=== PATIENT | female | born 1930 | race Caucasian/White ===

== ENCOUNTER 2018-04-05 09:51 | Inpatient (IN) | payer MEDICARE ==
[2018-04-05] MEDS ORDERED: IPRATROPIUM-ALBUTEROL 3 ML NEB INHALATION STA ×2 (10:55→13:58)
[2018-04-05] MEDS ORDERED: SODIUM CHLORIDE 0.9% 500 ML 500 ML IV STA (10:55)
[2018-04-05] MEDS ORDERED: ONDANSETRON 4 MG/2 ML VIAL IVP STA (10:56)
[2018-04-05] MEDS ORDERED: KETOROLAC 60 MG/2 ML VIAL IVP STA (11:00)
--- NOTE | 2018-04-05 11:00 | ED ---
General Adult HPI - General Chief complaint: Shortness of Breath Stated complaint: SOB Time Seen by Provider: 04/05/18 10:00 Source: patient, RN notes reviewed Mode of arrival: wheelchair Limitations: no limitations - History of Present Illness Initial comments: This is an 87-year-old female presents emergency department with past medical history significant for pulmonary fibrosis. Patient states his been getting worse over the last few days. She has a little worse and the day before per patient states she was has a cough and has not worsened normal and she is bringing up some sputum which is a little unusual. Patient denies any fever chills. Patient denied chest pain or palpitations. Patient states she has a little queasy stomach but has not vomited. Patient states she has not been able eat much because she doesn't feel well. Patient also states her sciatica is acting up lately as well. Patient denies any recent injury or trauma. Patient denies a headache patient denies any numbness or focal weakness. Patient denies any abdominal pain. - Related Data Home Medications Medication Instructions Recorded Confirmed Aspirin [[place] Aspirin EC] 81 day PO DAILY 04/05/18 04/05/18 Calcium Carbonate/Vitamin D3 1 tab PO DAILY 04/05/18 04/05/18 [Calcium 600-Vit D3 400 Caplet] Cetirizine HCl [Zyrtec] 10 mg PO DAILY 04/05/18 04/05/18 Fluticasone Nasal [place] [Flonase 1 spray EA NOSTRIL DAILY 04/05/18 04/05/18 Nasal [place]] Vit C/E/Zn/Coppr/Lutein/Zeaxan 1 tab PO BID 04/05/18 04/05/18 [Preservision Areds 2 Softgel] Vitamin B Complex 1 cap PO DAILY 04/05/18 04/05/18 traMADol HCl [Ultram] 50 mg PO Q6HR 04/05/18 04/05/18 Allergies Allergy/AdvReac Type Severity Reaction Status Date / Time acetaminophen [From Vicodin] Allergy Nausea & Verified 04/05/18 12:28 Vomiting hydrocodone [From Vicodin] Allergy Nausea & Verified 04/05/18 12:28 Vomiting Review of Systems ROS Statement: Those systems with pertinent positive or pertinent negative responses have been documented in the HPI. ROS Other: All systems not noted in ROS Statement are negative. Past Medical History Past Medical History: COPD History of Any Multi-Drug Resistant Organisms: None Reported Past Surgical History: Hysterectomy Past Psychological History: No Psychological Hx Reported Smoking Status: Never smoker Past Alcohol Use History: None Reported Past Drug Use History: None Reported General Exam - General Exam Comments Initial Comments: GENERAL: Patient is well-developed and well-nourished. Patient is nontoxic and well- hydrated and is in mild distress. ENT: Neck is soft and supple. No significant lymphadenopathy is noted. Oropharynx is clear. Moist mucous membranes. Neck has full range of motion without eliciting any pain. EYES: The sclera were anicteric and conjunctiva were pink and moist. Extraocular movements were intact and pupils were equal round and reactive to light. Eyelids were unremarkable. PULMONARY: Patient has crackles bilaterally CARDIOVASCULAR: There is a regular rate and rhythm without any murmurs gallops or rubs. ABDOMEN: Soft and nontender with normal bowel sounds. No palpable organomegaly was noted. There is no palpable pulsatile mass. SKIN: Skin is clear with no lesions or rashes and otherwise unremarkable. NEUROLOGIC: Patient is alert and oriented x3. Cranial nerves II through XII are grossly intact. Motor and sensory are also intact. Normal speech, volume and content. Symmetrical smile. MUSCULOSKELETAL: Normal extremities with adequate strength and full range of motion. No lower extremity swelling or edema. No calf tenderness. LYMPHATICS: No significant lymphadenopathy is noted PSYCHIATRIC: Normal psychiatric evaluation. Limitations: no limitations Course Vital Signs 04/05/18 04/05/18 04/05/18 09:57 10:47 11:08 Temperature 98.1 F Pulse Rate 115 H 104 H 104 H Respiratory 22 18 Rate Blood Pressure 165/71 131/62 O2 Sat by Pulse 84 L 97 Oximetry 04/05/18 11:18 Temperature Pulse Rate 109 H Respiratory Rate Blood Pressure O2 Sat by Pulse Oximetry Medical Decision Making - Medical Decision Making EKG shows sinus tachycardia at 109 bpm MT interval is 138 QRSs 82 QT interval 356 QTC is 479 per patient's EKG shows no ST segment elevation. Computed tomography scan shows no pulmonary embolism only worsening pulmonary fibrosis with some increased lymphadenopathy in the mediastinum. Patient was oxygen between 90-92% on oxygen. Patient received steroids and breathing treatment emergency department she felt as though the breathing treatment help but she still felt short of breath that she moved at all. I spoke with Dr. Campos and he agreed to admit the patient admitted the patient I consult pulmonology. I continue steroids and breathing treatments on the floor. In oxygen is removed patient Below 88% on Room Air. Patient Does Not Wear Any Oxygen at Home. - Lab Data Result diagrams: 04/05/18 10:14 04/05/18 10:14 Lab Results 04/05/18 04/05/18 04/05/18 Range/Units 10:14 10:14 10:14 WBC 9.8 (3.8-10.6) k/uL RBC 5.08 (3.80-5.40) m/uL Hgb 14.7 (11.4-16.0) gm/dL Hct 45.2 (34.0-46.0) % MCV 89.0 (80.0-100.0) fL MCH 28.9 (25.0-35.0) pg MCHC 32.4 (31.0-37.0) g/dL RDW 14.8 (11.5-15.5) % Plt Count 360 (150-450) k/uL Neutrophils % 78 % Lymphocytes % 9 % Monocytes % 7 % Eosinophils % 4 % Basophils % 0 % Neutrophils # 7.6 (1.3-7.7) k/uL Lymphocytes # 0.9 L (1.0-4.8) k/uL Monocytes # 0.7 (0-1.0) k/uL Eosinophils # 0.4 (0-0.7) k/uL Basophils # 0.0 (0-0.2) k/uL PT 10.9 (9.0-12.0) sec INR 1.0 (<1.2) APTT 24.1 (22.0-30.0) sec D-Dimer 2.10 H (<0.60) mg/L FEU Sodium 137 (137-145) mmol/L Potassium 4.4 (3.5-5.1) mmol/L Chloride 100 (98-107) mmol/L Carbon Dioxide 28 (22-30) mmol/L Anion Gap 9 mmol/L BUN 15 (7-17) mg/dL Creatinine 0.97 (0.52-1.04) mg/dL Est GFR (CKD-EPI)AfAm 61 (>60 ml/min/1.73 sqM) Est GFR (CKD-EPI)NonAf 53 (>60 ml/min/1.73 sqM) Glucose 105 H (74-99) mg/dL Calcium 9.7 (8.4-10.2) mg/dL Magnesium 2.1 (1.6-2.3) mg/dL Total Bilirubin 0.9 (0.2-1.3) mg/dL AST 42 H (14-36) U/L ALT 26 (9-52) U/L Alkaline Phosphatase 114 (38-126) U/L Troponin I (0.000-0.034) ng/mL NT-Pro-B Natriuret Pep pg/mL Total Protein 7.3 (6.3-8.2) g/dL Albumin 3.7 (3.5-5.0) g/dL 04/05/18 04/05/18 Range/Units 10:14 10:14 WBC (3.8-10.6) k/uL RBC (3.80-5.40) m/uL Hgb (11.4-16.0) gm/dL Hct (34.0-46.0) % MCV (80.0-100.0) fL MCH (25.0-35.0) pg MCHC (31.0-37.0) g/dL RDW (11.5-15.5) % Plt Count (150-450) k/uL Neutrophils % % Lymphocytes % % Monocytes % % Eosinophils % % Basophils % % Neutrophils # (1.3-7.7) k/uL Lymphocytes # (1.0-4.8) k/uL Monocytes # (0-1.0) k/uL Eosinophils # (0-0.7) k/uL Basophils # (0-0.2) k/uL PT (9.0-12.0) sec INR (<1.2) APTT (22.0-30.0) sec D-Dimer (<0.60) mg/L FEU Sodium (137-145) mmol/L Potassium (3.5-5.1) mmol/L Chloride (98-107) mmol/L Carbon Dioxide (22-30) mmol/L Anion Gap mmol/L BUN (7-17) mg/dL Creatinine (0.52-1.04) mg/dL Est GFR (CKD-EPI)AfAm (>60 ml/min/1.73 sqM) Est GFR (CKD-EPI)NonAf (>60 ml/min/1.73 sqM) Glucose (74-99) mg/dL Calcium (8.4-10.2) mg/dL Magnesium (1.6-2.3) mg/dL Total Bilirubin (0.2-1.3) mg/dL AST (14-36) U/L ALT (9-52) U/L Alkaline Phosphatase (38-126) U/L Troponin I <0.012 (0.000-0.034) ng/mL NT-Pro-B Natriuret Pep 2480 pg/mL Total Protein (6.3-8.2) g/dL Albumin (3.5-5.0) g/dL Critical Care Time Critical Care Time: Yes Total Critical Care Time: 35 Disposition Clinical Impression: Dyspnea, Pulmonary fibrosis, Hypoxia Disposition: ADMITTED IP TO THIS HOSP Referrals: Ran Mota MD [Primary Care Provider] - 1-2 days Time of Disposition: 13:34
[2018-04-05 11:06] LABS: Basophils % (A) 0 %; Eosinophils # (A) 0.4 k/uL (0-0.7); Eosinophils % (A) 4 %; HCT 45.2 % (34.0-46.0); HGB 14.7 gm/dL (11.4-16.0); Lymphocytes # (A) 0.9 k/uL (1.0-4.8); Lymphocytes % (A) 9 %; MCH 28.9 pg (25.0-35.0); MCHC 32.4 g/dL (31.0-37.0); Mean Platelet Volume 6.7; Monocytes # (A) 0.7 k/uL (0-1.0); Monocytes % (A) 7 %; Neutrophils # (A) 7.6 k/uL (1.3-7.7); Neutrophils % (A) 78 %; Platelet Count 360 k/uL (150-450); RBC 5.08 m/uL (3.80-5.40); RDW 14.8 % (11.5-15.5); WBC 9.8 k/uL (3.8-10.6)
[2018-04-05 11:19] LABS: Albumin 3.7 g/dL (3.5-5.0); Calcium 9.7 mg/dL (8.4-10.2); Magnesium 2.1 mg/dL (1.6-2.3); Potassium 4.4 mmol/L (3.5-5.1); Total Bilirubin 0.9 mg/dL (0.2-1.3); Total Protein 7.3 g/dL (6.3-8.2)
[2018-04-05 11:22] LABS: Partial Thromboplastin Time 24.1 sec (22.0-30.0); Prothrombin Time 10.9 sec (9.0-12.0)
[2018-04-05 11:43] LABS: D-Dimer 2.1 mg/L FEU (<0.60)
--- NOTE | 2018-04-05 11:46 | XR ---
EXAMINATION TYPE: XR chest 2V DATE OF EXAM: 04/05/2018 COMPARISON: 06/15/2012, CT chest 06/15/2012 INDICATION: Difficulty breathing, COPD TECHNIQUE: Frontal and lateral views of the chest are obtained. FINDINGS: The heart size is borderline in size. The pulmonary vasculature is normal. There is diffuse increased lung markings. Portion of this is chronic and could represent some pulmona ry fibrosis.. Prior right shoulder repair IMPRESSION: 1. Findings suggestive for pulmonary fibrosis.
[2018-04-05] MEDS ORDERED: methylPREDNISolone SOD SUCCI 125 MG/2 ML VIAL IV STA (12:32)
--- NOTE | 2018-04-05 13:12 | CT ---
CT CHEST FOR PULMONARY EMBOLISM. EXAMINATION TYPE: CT chest angio for PE DATE OF EXAM: 04/05/2018 INDICATION: SOB and Pain CT DLP: 425.9 mGycm, Automated exposure control for dose reduction was used. CONTRAST: Patient injected with 100 ml mL of Isovue 370. COMPARISON: 06/15/2012 TECHNIQUE: CT of the chest is performed on a spiral scan at 2 mm thick sections. Study is performed with intravenous contrast timed for evaluation for pulmonary embolism. This will limit additional po rtions of the evaluation. 3-D MIP images reconstructed by the technologist are reviewed on the compu ter in the coronal and sagittal planes. FINDINGS: No persistent filling defects are evident to suggest an acute pulmonary embolism. There appears to be some enlarged pretracheal lymphadenopathy, the largest measures 1.3 cm in the pre tracheal space. Smaller superior mediastinal adenopathy is present. Suspicious axillary adenopathy is not evident. There may be enlarged subcarinal lymph node measuring 1.2 cm. The ascending aorta diameter at the level of the main pulmonary artery is 3.4 cm. The main pulmonary artery diameter at the bifurcation is 3.2 cm. Changes compatible pulmonary fibrosis are at the periphery and lung bases. This is progressive from [address] section through the upper abdomen are unremarkable. IMPRESSIONS: 1. No acute pulmonary embolism. 2. Pulmonary fibrosis, worsening from 2013. 3. Enlarged mediastinal adenopathy which is increased from comparison.
[2018-04-05] MEDS ORDERED: IPRATROPIUM-ALBUTEROL 3 ML NEB INHALATION PRN (13:34)
[2018-04-05 16:49] LABS: Glucose,Whole Blood 204 mg/dL (75-99)
[2018-04-05] MEDS: methylPREDNISolone SOD SUCCI 125 MG/2 ML VIAL IV SCH ×2 (17:07→23:12)
[2018-04-05] MEDS ORDERED: traMADol 50 MG TAB PO PRN (20:00)
[2018-04-05 21:39] LABS: Glucose,Whole Blood 141 mg/dL (75-99)
[2018-04-05] MEDS: INSULIN ASPART (NovoLOG) 100 UNIT/ML VIAL SQ SCH (21:49)
[2018-04-05] MEDS: VIT A,C & E-LUTEIN-MINERALS 1 EACH TAB PO SCH (21:50)
[2018-04-05 23:34] LABS: Appearance,Urine Clear (Clear); Bacteria,Urine Rare /hpf; Bilirubin,Urine Negative (Negative); Blood,Urine Negative (Negative); Color,Urine Yellow; Glucose,Urine (UA) Negative (Negative); Ketones,Urine Negative (Negative); Leukocyte Esterase,Urine Moderate (Negative); Nitrite,Urine Negative (Negative); Protein,Urine Trace (Negative); RBC,Urine 4 /hpf (0-5); Specific Gravity,Urine 1.042 (1.001-1.035); Squamous Epithelial Cell,Urine <1 /hpf (0-4); Urobilinogen,Urine <2.0 mg/dL (<2.0); WBC,Urine 20 /hpf (0-5)
[2018-04-06] MEDS ORDERED: ALPRAZolam 0.25 MG TAB PO PRN (00:14)
[2018-04-06 06:04] LABS: Glucose,Whole Blood 127 mg/dL (75-99)
[2018-04-06] MEDS: INSULIN ASPART (NovoLOG) 100 UNIT/ML VIAL SQ SCH ×4 (06:08→21:06)
[2018-04-06] MEDS: methylPREDNISolone SOD SUCCI 125 MG/2 ML VIAL IV SCH ×4 (06:19→22:23)
[2018-04-06] MEDS: PANTOPRAZOLE 40 MG TABLET PO SCH (06:19)
[2018-04-06] MEDS: IPRATROPIUM-ALBUTEROL 3 ML NEB INHALATION SCH ×3 (08:14→19:05)
[2018-04-06] MEDS: HEPARIN SODIUM,PORCINE 5,000 UNIT/ML 1 ML VIAL SQ SCH ×2 (08:16→21:06)
[2018-04-06] MEDS: CALCIUM CARB-VIT D 500MG-200UN 1 EACH TAB PO SCH (08:16)
[2018-04-06] MEDS: ASPIRIN 81 MG PO SCH (08:16)
[2018-04-06] MEDS: VIT A,C & E-LUTEIN-MINERALS 1 EACH TAB PO SCH ×2 (08:16→21:06)
[2018-04-06] MEDS: LORATADINE 10 MG TAB PO SCH (08:16)
--- NOTE | 2018-04-06 08:48 | HP ---
HISTORY AND PHYSICAL DATE OF SERVICE: 04/06/2018 CHIEF COMPLAINT: Shortness of breath. HISTORY: This is an 87-year-old woman with a past medical history of COPD, pulmonary fibrosis, bladder surgery being followed by Dr. Ran Mota in the outpatient setting complaining of the increased shortness of breath. The patient also had pulmonary fibrosis. The patient has seen Dr. [place] and Dr. Vu before. The patient also bringing out some sputum and the cough is worse and the patient came to [facility] and was admitted for further evaluation. D-dimer was elevated and CT angio of the chest showed no evidence of pulmonary embolism, but increased pulmonary fibrosis and mediastinal adenopathy was noted. Patient admitted for further evaluation. There is no history of fever or rigors. No history of headache, loss of consciousness or seizures. PAST MEDICAL HISTORY: COPD, pulmonary fibrosis, bladder surgery, hysterectomy. MEDICATIONS: Medications prior to admission: 1. Ultram 50 mg q.6 p.r.n. 2. Vitamin B complex 1 p.o. daily. 3. PreserVision 1 tablet p.o. b.i.d. 4. Flonase 1 spray daily. 5. Zyrtec 10 mg p.o. daily. 6. Calcium with vitamin D one p.o. daily. 7. Aspirin 81 mg daily. ALLERGIES: Allergies are VICODIN. FAMILY HISTORY: No history of heart disease or strokes in the family. SOCIAL HISTORY: No history of smoking. No history of alcohol intake. REVIEW OF SYSTEMS: ENT: No diminished hearing or diminished vision. CARDIOVASCULAR SYSTEM: No angina. RESPIRATORY SYSTEM: As mentioned earlier. GI: No nausea. : No dysuria. NERVOUS SYSTEM: No numbness or weakness. ALLERGY/IMMUNOLOGY: No asthma or hayfever. MUSCULOSKELETAL: As mentioned earlier. HEMATOLOGY/ONCOLOGY: No history of anemia. ENDOCRINE: No history of diabetes or hypothyroidism. CONSTITUTIONAL: As mentioned earlier. DERMATOLOGY: Negative. RHEUMATOLOGY: Negative. PSYCHIATRY: As mentioned earlier. PHYSICAL EXAMINATION: Patient is alert, oriented x3. Pulse is 86. Blood pressure 105/50, respiration 16, temperature 97.5, pulse ox 96% on 2 L. HEENT: Conjunctivae normal. Oral mucosa moist. Neck is no jugular venous distention. No carotid bruit. No lymph node enlargement. CARDIOVASCULAR: S1, S2 muffled. No S3, no S4. RESPIRATORY: Breath sounds diminished at the bases. A few scattered rhonchi and crackles. ABDOMEN: Soft, nontender. LEGS: No edema. No swelling. NERVOUS SYSTEM: Higher functions as mentioned earlier. Moves all 4 limbs. No focal motor deficits. LYMPHATICS: No lymphadenopathy of the neck, axillae or groin. SKIN: No ulcer, rash or bleeding. JOINTS: No active deforming arthropathy. LABS: WBC 9.8, hemoglobin is 14. 7. D-dimer is noted. Glucose 105. UA noted. ASSESSMENT: 1. Chronic obstructive pulmonary disease acute exacerbation with acute purulent tracheobronchitis. 2. Pulmonary fibrosis, acute exacerbation. 3. Mediastinal adenopathy. 4. Elevated D-dimer with no evidence of pulmonary embolism. 5. History of bladder surgery. 6. History of hysterectomy. RECOMMENDATION AND DISCUSSION: In this 87-year-old woman who presented with multiple complex medical issues, we will monitor the patient closely. Continue the current medications, continue symptomatic treatment. Bronchodilators, empiric antibiotics, steroids. Consult Dr. [place]. Resume the home medications. Guarded prognosis because of multiple complex medical issues. Further recommendations to follow. A copy of dictation forwarded to Dr. Ran Mota, who is the primary physician. MMODL / IJN: [id number] /
[2018-04-06] MEDS ORDERED: NON-FORMULARY DRUG (Vitamin B Complex [Vitamin B Complex] 1 CAP) PO SCH (09:00)
[2018-04-06] MEDS: FLUTICASONE 50MCG/SPRAY NASAL 16GM EA NOSTRIL SCH (09:08)
[2018-04-06 11:19] VITALS: BMI 29.5
[2018-04-06 11:52] LABS: Glucose,Whole Blood 131 mg/dL (75-99)
[2018-04-06] MEDS: AZITHROMYCIN 250 MG TAB PO SCH (14:47)
--- NOTE | 2018-04-06 16:07 | P.CNPUL ---
History of Present Illness Consult date: 04/06/18 Reason for consult: dyspnea, pulmonary fibrosis History of present illness: 7-year-old here patient with previous history of pulmonary fibrosis coming in today because of worsening shortness of breath cough chest congestion and some limited amount of sputum production. He is an elderly female patient. Her last evaluation was in our office many years back. Since then she hasn't been seeing a oxidation operator patient on no oxygen. She denies having any pleurisy or hemoptysis. No altered mentation. At a time of admission him a the patient had a follow-up CAT scan of the chest and it showed no evidence of any acute pulmonary embolism. This was a CT angiogram of the chest. There was evidence supple with fibrosis it was worse compared to the previous CAT scan of 2013. There was also some limited enlargement of the sentinel lymph nodes at that also increased in comparison. Largest lymph node is in the pretracheal area measuring 1.3 cm in size. Smaller superior mediastinal lymphadenopathy was seen. The subcarinal lymph node was also enlarged at 1.2 cm. There is also systemic a Lortab that was measured around 3.4 cm in size. Patient also had an influenza screen that came back negative. The white cell count is not elevated at 9.8. Correlation profile is within normal limits. Renal function is also stable. Review of Systems Constitutional: Denies chills, Denies fever Eyes: denies as per HPI, denies blurred vision, denies bulging eye, denies decreased vision, denies diplopia, denies discharge, denies dry eye, denies irritation, denies itching, denies pain, denies photophobia, denies loss of peripheral vision, denies loss of vision, denies tunnel vision/blind spots Ears: deny: decreased hearing, ear discharge, earache, tinnitus Ears, nose, mouth and throat: Denies headache, Denies sore throat Cardiovascular: Reports dyspnea on exertion Respiratory: Reports congestion, Reports cough, Reports dyspnea Gastrointestinal: Denies abdominal pain, Denies diarrhea, Denies nausea, Denies vomiting Genitourinary: Reports as per HPI Menstruation: Reports as per HPI Musculoskeletal: Reports as per HPI Musculoskeletal: absent: ankle pain, ankle stiffness, ankle swelling, as per HPI , elbow pain, elbow stiffness, elbow swelling, foot pain, foot stiffness, foot swelling, hand pain, hand stiffness, hand swelling, hip pain, hip stiffness, hip swelling, knee pain, knee stiffness, knee swelling, shoulder pain, shoulder stiffness, shoulder swelling, wrist pain, wrist stiffness, wrist swelling Integumentary: Reports as per HPI Neurological: Reports as per HPI Psychiatric: Reports as per HPI Endocrine: Reports as per HPI Hematologic/Lymphatic: Reports as per HPI Allergic/Immunologic: Reports as per HPI Past Medical History Past Medical History: COPD Additional Past Medical History / Comment(s): Pulmonary Fibrosis History of Any Multi-Drug Resistant Organisms: None Reported Past Surgical History: Bladder Surgery, Hysterectomy Past Anesthesia/Blood Transfusion Reactions: No Reported Reaction Past Psychological History: No Psychological Hx Reported Smoking Status: Never smoker Past Alcohol Use History: None Reported Past Drug Use History: None Reported Medications and Allergies Home Medications Medication Instructions Recorded Confirmed Type Aspirin [[place] Aspirin EC] 81 day PO DAILY 04/05/18 04/05/18 History Calcium Carbonate/Vitamin D3 1 tab PO DAILY 04/05/18 04/05/18 History [Calcium 600-Vit D3 400 Caplet] Cetirizine HCl [Zyrtec] 10 mg PO DAILY 04/05/18 04/05/18 History Fluticasone Nasal [place] [Flonase 1 spray EA NOSTRIL DAILY 04/05/18 04/05/18 History Nasal [place]] Vit C/E/Zn/Coppr/Lutein/Zeaxan 1 tab PO BID 04/05/18 04/05/18 History [Preservision Areds 2 Softgel] Vitamin B Complex 1 cap PO DAILY 04/05/18 04/05/18 History traMADol HCl [Ultram] 50 mg PO Q6HR 04/05/18 04/05/18 History Allergies Allergy/AdvReac Type Severity Reaction Status Date / Time acetaminophen [From Vicodin] Allergy Nausea & Verified 04/05/18 12:28 Vomiting hydrocodone [From Vicodin] Allergy Nausea & Verified 04/05/18 12:28 Vomiting Physical Exam Vitals: Vital Signs Temp Pulse Pulse Resp BP Pulse Ox 04/06/18 15:54 97.0 F L 110 H 20 111/56 92 L 04/06/18 13:41 104 H 04/06/18 13:33 100 04/06/18 11:44 97.0 F L 99 20 102/63 94 L 04/06/18 08:24 100 04/06/18 08:16 96 96 04/06/18 08:00 97.5 F L 100 22 109/55 94 L 04/06/18 04:00 72 16 95/52 94 L 04/06/18 00:00 86 16 105/50 96 04/05/18 20:00 97.5 F L 95 18 105/47 94 L Intake and Output 04/06/18 04/06/18 04/06/18 06:59 14:59 22:59 Intake Total 530 Output Total 200 300 Balance -200 230 Intake: Intake, IV Titration 50 Amount cefTRIAXone 1 gm In 50 Sodium Chloride 0.9% 50 ml @ 100 mls/hr IVPB Q24HR [facility] Rx#:[id number] Oral 480 Output: Urine 200 300 Other: Voiding Method Toilet # Voids 1 1 # Bowel Movements 1 Weight 68.5 kg 68.5 kg Gen. appearance the patient is calm comfortable likely distress Head exam was generally normal. There was no scleral icterus or corneal arcus. Mucous membranes were moist. Neck was supple and without jugular venous distension, thyromegaly, or carotid bruits. Carotids were easily palpable bilaterally. There was no adenopathy. Lungs sounds are diminished and the patient has coarse crackles in lung bases bilaterally Cardiac exam revealed the PMI to be normally situated and sized. The rhythm was regular and no extrasystoles were noted during several minutes of auscultation. The first and second heart sounds were normal and physiologic splitting of the second heart sound was noted. There were no murmurs, rubs, clicks, or gallops. Abdominal exam revealed normal bowel sounds. The abdomen was soft, non-tender, and without masses, organomegaly, or appreciable enlargement of the abdominal aorta. Examination of the extremities revealed easily palpable radial, femoral and pedal pulses. There was no cyanosis, clubbing or edema. Examination of the skin revealed no evidence of significant rashes, suspicious appearing nevi or other concerning lesions. Neurologically awake and alert and there is no focal neurological deficits. Results - Laboratory Findings CBC and BMP: 04/05/18 10:14 04/05/18 10:14 PT/INR, D-dimer PT 10.9 sec (9.0-12.0) 04/05/18 10:14 INR 1.0 (<1.2) 04/05/18 10:14 D-Dimer 2.10 mg/L FEU (<0.60) H 04/05/18 10:14 Abnormal lab findings: Abnormal Labs 04/05/18 04/05/18 04/05/18 10:14 10:14 10:14 Lymphocytes # 0.9 L D-Dimer 2.10 H Glucose 105 H POC Glucose (mg/dL) AST 42 H Ur Specific [place] Urine Protein Ur Leukocyte Esterase Urine WBC Urine Bacteria 04/05/18 04/05/18 04/05/18 16:47 21:38 23:21 Lymphocytes # D-Dimer Glucose POC Glucose (mg/dL) 204 H 141 H AST Ur Specific [place] 1.042 H Urine Protein Trace H Ur Leukocyte Esterase Moderate H Urine WBC 20 H Urine Bacteria Rare H 04/06/18 04/06/18 06:03 11:42 Lymphocytes # D-Dimer Glucose POC Glucose (mg/dL) 127 H 131 H AST Ur Specific [place] Urine Protein Ur Leukocyte Esterase Urine WBC Urine Bacteria - Diagnostic Findings CT scan - chest: image reviewed Assessment and Plan Plan: Assessment 1 acute exacerbation of COPD/pulmonary fibrosis probably related to an acute bronchitis. Pneumonia is doubtful. The patient has background COPD and pulmonary fibrosis that has gotten worse over the past 6 years. 2 chronic pulmonary fibrosis with gradual progression of the disease over the past 6 years based on CAT scan findings. The pulmonary fibrosis has a subpleural distribution more so in the lower lobes. There are no groundglass changes. 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 3 borderline enlargement of mediastinal lymph nodes, nonspecific, rule out low- grade lymphoma. Sarcoidosis is not a possibility although less likely in this age group. 4 COPD Plan We'll treat this patient with DuoNeb nebulized treatments around the clock. The patient will also need a combination of Rocephin and Zithromax pending broad -spectrum antibiotic coverage for taken bronchitis and questionable superimposed pneumonia although this is not accurately elicited a CAT scan of the chest. We'll treat this patient with IV Solu Medrol 60 mg every 6 hours. Resume outpatient medications. Collect a sputum Gram stain and culture. Anticipate improvement with the next 24-48 hours. We'll continue to follow make further recommendations based on her progress. She was made aware that there has been some progression of the pulmonary fibrosis with the past 6 years based on CAT scan criteria. Mediastinal lymph node enlargement. The patient will need to be followed up clinically and repeat CAT scan will be needed in 6 months time. No need for any interventions or biopsies or bronchoscopies at this point in time.
[2018-04-06 17:00] LABS: Glucose,Whole Blood 180 mg/dL (75-99)
--- NOTE | 2018-04-06 19:54 | PN ---
PROGRESS NOTE DATE OF SERVICE: 04/06/2018 This 87-year-old woman who was admitted with COPD acute exacerbation with acute purulent tracheobronchitis, also had pulmonary fibrosis. The patient is being closely monitored at this time. The patient has features of UTI. CTA did not show any evidence of pulmonary embolism. Dr. Montana is following the patient closely. No chest pain. No palpitations. No fever. Pneumonia is doubtful. EXAM: Alert and oriented x3. Pulse is 101. Blood pressure 111/56, respiration 20, temperature 97 degrees, pulse ox 92% on 2 L. HEENT: Conjunctivae normal. NECK: No jugular venous distention. CARDIOVASCULAR: S1, S2 muffled. Respiratory: Breath sounds diminished in the bases. Bilateral scattered rhonchi and crackles. Abdomen is soft, nontender. Legs are no edema. No swelling. No focal deficits. LABS: CBC noted, otherwise UA noted. Glucose 141. ASSESSMENT: 1. Chronic obstructive pulmonary disease exacerbation with possible acute purulent tracheobronchitis. 2. Possible pulmonary fibrosis acute exacerbation. 3. Mediastinal adenopathy on the CT scan. 4. Urinary tract infection. 5. Elevated D-dimer with no evidence of pulmonary embolus. 6. History of bladder surgery. 7. History of hysterectomy. RECOMMENDATIONS AND DISCUSSION: Recommend to continue current medications, management. Symptomatic treatment. Continue the bronchodilators, antibiotics, steroids. Closely follow with Pulmonary. Guarded prognosis because of multiple complex medical issues. Further recommendations to follow. MMODL / IJN: [id number] /
[2018-04-06 21:02] LABS: Glucose,Whole Blood 155 mg/dL (75-99)
[2018-04-07] MEDS: methylPREDNISolone SOD SUCCI 125 MG/2 ML VIAL IV SCH ×3 (06:11→17:38)
[2018-04-07 07:12] LABS: Glucose,Whole Blood 102 mg/dL (75-99)
[2018-04-07] MEDS: IPRATROPIUM-ALBUTEROL 3 ML NEB INHALATION SCH ×3 (07:13→19:26)
[2018-04-07] MEDS: INSULIN ASPART (NovoLOG) 100 UNIT/ML VIAL SQ SCH ×4 (07:56→21:49)
[2018-04-07] MEDS: CALCIUM CARB-VIT D 500MG-200UN 1 EACH TAB PO SCH (08:20)
[2018-04-07] MEDS: HEPARIN SODIUM,PORCINE 5,000 UNIT/ML 1 ML VIAL SQ SCH ×2 (08:20→21:49)
[2018-04-07] MEDS: ASPIRIN 81 MG PO SCH (08:20)
[2018-04-07] MEDS: PANTOPRAZOLE 40 MG TABLET PO SCH (08:20)
[2018-04-07] MEDS: LORATADINE 10 MG TAB PO SCH (08:20)
[2018-04-07] MEDS: VIT A,C & E-LUTEIN-MINERALS 1 EACH TAB PO SCH ×2 (08:22→21:49)
[2018-04-07] MEDS: FLUTICASONE 50MCG/SPRAY NASAL 16GM EA NOSTRIL SCH (09:27)
[2018-04-07 10:05] LABS: Basophils % (A) 0 %; Eosinophils % (A) 0 %; HCT 38.9 % (34.0-46.0); HGB 12.5 gm/dL (11.4-16.0); Hypochromasia Slight; Lymphocytes # (A) 0.6 k/uL (1.0-4.8); Lymphocytes % (A) 3 %; MCH 29.2 pg (25.0-35.0); MCHC 32.1 g/dL (31.0-37.0); MCV 90.7 fL (80.0-100.0); Mean Platelet Volume 7.6; Monocytes % (A) 4 %; Neutrophils # (A) 20.7 k/uL (1.3-7.7); Neutrophils % (A) 92 %; Platelet Count 329 k/uL (150-450); RBC 4.29 m/uL (3.80-5.40); RDW 15.1 % (11.5-15.5); WBC 22.5 k/uL (3.8-10.6)
[2018-04-07 10:13] LABS: Calcium 9.2 mg/dL (8.4-10.2)
[2018-04-07 11:52] LABS: Glucose,Whole Blood 124 mg/dL (75-99)
--- NOTE | 2018-04-07 12:12 | P.PN ---
Subjective Progress Note Date: 04/07/18 Principal diagnosis: Acute exacerbation of chronic obstructive pulmonary disease/pulmonary fibrosis secondary to acute bronchitis. No clear evidence of pneumonia. 87-year-old here patient with previous history of pulmonary fibrosis coming in today because of worsening shortness of breath cough chest congestion and some limited amount of sputum production. He is an elderly female patient. Her last evaluation was in our office many years back. Since then she hasn't been seeing a supplier specialist patient on no oxygen. She denies having any pleurisy or hemoptysis. No altered mentation. At a time of admission him a the patient had a follow-up CAT scan of the chest and it showed no evidence of any acute pulmonary embolism. This was a CT angiogram of the chest. There was evidence supple with fibrosis it was worse compared to the previous CAT scan of 2012. There was also some limited enlargement of the sentinel lymph nodes at that also increased in comparison. Largest lymph node is in the pretracheal area measuring 1.3 cm in size. Smaller superior mediastinal lymphadenopathy was seen. The subcarinal lymph node was also enlarged at 1.2 cm. There is also systemic a Lortab that was measured around 3.4 cm in size. Patient also had an influenza screen that came back negative. The white cell count is not elevated at 9.8. Correlation profile is within normal limits. Renal function is also stable. The patient is seen today for 2017 in follow-up on the regular medical floor. She is currently resting comfortably in bed. She is awake and alert in no acute distress. She has a nonproductive cough. No chills or night sweats. Maintaining good O2 saturations in the 90s on 2 L/m. Nasal cannula. She's been afebrile. Hemodynamically stable. The culture reveals no growth. Sputum cultures pending. White count 22.5. Hemoglobin 12.5. Creatinine 0.97. Maintained on DuoNeb inhalations, antibiotics in the form of ceftriaxone and azithromycin, IV Solu-Medrol. Objective - Vital Signs Vital signs: Vital Signs Temp 97.8 F 04/07/18 07:00 Pulse 100 04/07/18 07:28 Resp 20 04/07/18 07:00 BP 101/57 04/07/18 07:00 Pulse Ox 91 L 04/07/18 07:00 Intake & Output 04/06/18 04/07/18 04/07/18 18:59 06:59 18:59 Intake Total 820 Output Total 300 Balance 520 Weight 68.5 kg Intake: Intake, IV Titration 100 Amount cefTRIAXone 1 gm In 100 Sodium Chloride 0.9% 50 ml @ 100 mls/hr IVPB Q24HR [facility] Rx#:[id number] Oral 720 Output: Urine 300 Other: Voiding Method Toilet Toilet # Voids 1 1 # Bowel Movements 1 - Exam GENERAL EXAM: Alert, active, comfortable in no apparent distress. On 2 L/m per nasal cannula. HEAD: Normocephalic. EYES: Normal reaction of pupils, equal size. NOSE: Clear with pink turbinates. THROAT: No erythema or exudates. NECK: No masses, no JVD. CHEST: No chest wall deformity. LUNGS: Equal air entry with coarse crackles in the posterior bases. CVS: S1 and S2 normal with no audible murmur, regular rhythm. ABDOMEN: No hepatosplenomegaly, normal bowel sounds, no guarding or rigidity. SPINE: No scoliosis or deformity SKIN: No rashes CENTRAL NERVOUS SYSTEM: No focal deficits, tone is normal in all 4 extremities. EXTREMITIES: There is no peripheral edema. No clubbing, no cyanosis. Peripheral pulses are intact. - Labs CBC & Chem 7: 04/07/18 09:45 04/07/18 09:45 Labs: Abnormal Lab Results - Last 24 Hours (Table) 04/06/18 04/06/18 04/07/18 Range/Units 16:33 21:00 07:11 WBC (3.8-10.6) k/uL Neutrophils # (1.3-7.7) k/uL Lymphocytes # (1.0-4.8) k/uL BUN (7-17) mg/dL Glucose (74-99) mg/dL POC Glucose (mg/dL) 180 H 155 H 102 H (75-99) mg/dL 04/07/18 04/07/18 04/07/18 Range/Units 09:45 09:45 11:50 WBC 22.5 H (3.8-10.6) k/uL Neutrophils # 20.7 H (1.3-7.7) k/uL Lymphocytes # 0.6 L (1.0-4.8) k/uL BUN 37 H (7-17) mg/dL Glucose 107 H (74-99) mg/dL POC Glucose (mg/dL) 124 H (75-99) mg/dL Microbiology - Last 24 Hours (Table) 04/07/18 08:25 Sputum Culture - Preliminary Sputum 04/05/18 11:55 Blood Culture - Preliminary Blood No Growth after 24 hours Assessment and Plan Assessment: Assessment 1 acute exacerbation of COPD/pulmonary fibrosis probably related to an acute bronchitis. Pneumonia is doubtful. The patient has background COPD and pulmonary fibrosis that has gotten worse over the past 6 years. 2 chronic pulmonary fibrosis with gradual progression of the disease over the past 6 years based on CAT scan findings. The pulmonary fibrosis has a subpleural distribution more so in the lower lobes. There are no groundglass changes. 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 3 borderline enlargement of mediastinal lymph nodes, nonspecific, rule out low- grade lymphoma. Sarcoidosis is not a possibility although less likely in this age group. 4 COPD Plan The patient was seen and evaluated by Dr. Montana. She is improved today as compared to yesterday. Not quite back to her baseline. We'll continue with her current medications including IV Solu-Medrol, bronchodilators, empiric antibiotics. We will continue to follow make further recommendations based on her clinical status. I, the cosigning physician, performed a history & physical examination of the patient. Lungs sounds with faint coarse crackles bibasilar, and expiratory wheeze, diminished Maintaining good O2 saturations in the 90s on 2 L/m per nasal cannula. I discussed the assessment and plan of care with my nurse practitioner, Faviola Caballero. I attest to the above note as dictated by her.
[2018-04-07] MEDS: AZITHROMYCIN 250 MG TAB PO SCH (12:30)
[2018-04-07 17:13] LABS: Glucose,Whole Blood 127 mg/dL (75-99)
[2018-04-07 20:02] LABS: Glucose,Whole Blood 178 mg/dL (75-99)
--- NOTE | 2018-04-07 23:41 | PN ---
PROGRESS NOTE DATE OF SERVICE: 04/07/2018 PRESENTING COMPLAINT: Short of breath. INTERVAL HISTORY: Patient was admitted with acute COPD exacerbation with pulmonary fibrosis from acute bronchitis. Feeling better. Slight cough. Appetite is getting better. Still requiring some oxygen. Sitting up on the bed. Has been out of bed. REVIEW OF SYSTEMS: Done for constitutional, cardiovascular, GI, pulmonary; relevant findings as above. CURRENT MEDICATIONS: Reviewed. They include: 1. IV Solu-Medrol. 2. DuoNeb. 3. IV ceftriaxone. PHYSICAL EXAMINATION: VITAL SIGNS: Temperature 97.3, pulse 99, respiration 16, blood pressure 114/71, pulse ox 92% on 2 L. GENERAL APPEARANCE: Sitting up, awake. EYES: Pupils equal. Conjunctivae normal. NECK: JVD not raised. Mass not palpable. RESPIRATORY: Effort increased. LUNGS: Some fine basal crackles. CARDIOVASCULAR: First and second sounds normal. No edema. ABDOMEN: Soft, non-tender. Liver and spleen not palpable. PSYCHIATRY: Alert and oriented x3. Mood and affect normal. INVESTIGATIONS: White count 22.5, hemoglobin 5.0. BUN 37, creatinine 0.97. Accu-Cheks are noted. ASSESSMENT: 1. Acute chronic obstructive pulmonary disease exacerbation. 2. Chronic pulmonary fibrosis. 3. Acute bronchitis. Doubt pneumonia. 4. Pulmonary fibrosis is progressive. 5. Acute hypoxic respiratory failure from above. PLAN: Cut back on Solu-Medrol. Switch to oral antibiotic. Patient may require oxygen for home. Will follow. MMODL / IJN: [id number] /
[2018-04-08] MEDS: methylPREDNISolone SOD SUCCI 40 MG/ML 1 ML VIAL IV SCH ×2 (00:23→07:59)
[2018-04-08] MEDS: INSULIN ASPART (NovoLOG) 100 UNIT/ML VIAL SQ SCH ×2 (07:03→12:21)
[2018-04-08 07:17] LABS: Glucose,Whole Blood 97 mg/dL (75-99)
[2018-04-08] MEDS: ASPIRIN 81 MG PO SCH (07:56)
[2018-04-08] MEDS: PANTOPRAZOLE 40 MG TABLET PO SCH (07:56)
[2018-04-08] MEDS: CALCIUM CARB-VIT D 500MG-200UN 1 EACH TAB PO SCH (07:56)
[2018-04-08] MEDS: HEPARIN SODIUM,PORCINE 5,000 UNIT/ML 1 ML VIAL SQ SCH (07:57)
[2018-04-08] MEDS: LORATADINE 10 MG TAB PO SCH (07:57)
[2018-04-08] MEDS: VIT A,C & E-LUTEIN-MINERALS 1 EACH TAB PO SCH (07:57)
[2018-04-08] MEDS: FLUTICASONE 50MCG/SPRAY NASAL 16GM EA NOSTRIL SCH (07:59)
[2018-04-08] MEDS: IPRATROPIUM-ALBUTEROL 3 ML NEB INHALATION SCH ×2 (08:39→12:55)
[2018-04-08 10:05] LABS: Basophils % (A) 0 %; Eosinophils % (A) 0 %; HGB 12.9 gm/dL (11.4-16.0); Hypochromasia Slight; Lymphocytes # (A) 0.7 k/uL (1.0-4.8); Lymphocytes % (A) 4 %; MCH 28.1 pg (25.0-35.0); MCHC 30.7 g/dL (31.0-37.0); MCV 91.5 fL (80.0-100.0); Mean Platelet Volume 7.3; Monocytes # (A) 0.5 k/uL (0-1.0); Monocytes % (A) 3 %; Neutrophils % (A) 93 %; Platelet Count 321 k/uL (150-450); RBC 4.59 m/uL (3.80-5.40); RDW 15.1 % (11.5-15.5); WBC 17.3 k/uL (3.8-10.6)
[2018-04-08 10:22] LABS: Calcium 9.4 mg/dL (8.4-10.2); Potassium 4.6 mmol/L (3.5-5.1)
[2018-04-08 11:55] LABS: Glucose,Whole Blood 133 mg/dL (75-99)
[2018-04-08] MEDS: AZITHROMYCIN 250 MG TAB PO SCH (12:52)
[2018-04-08 14:53] VITALS: BP 113/57; PULSE 111; RESP 18; TEMP 96.9
--- NOTE | 2018-04-08 16:23 | P.PN ---
Subjective Progress Note Date: 04/08/18 Principal diagnosis: Acute exacerbation of chronic obstructive pulmonary disease, pulmonary fibrosis , acute bronchitis 87-year-old here patient with previous history of pulmonary fibrosis coming in today because of worsening shortness of breath cough chest congestion and some limited amount of sputum production. He is an elderly female patient. Her last evaluation was in our office many years back. Since then she hasn't been seeing a central office maintainer patient on no oxygen. She denies having any pleurisy or hemoptysis. No altered mentation. At a time of admission him a the patient had a follow-up CAT scan of the chest and it showed no evidence of any acute pulmonary embolism. This was a CT angiogram of the chest. There was evidence supple with fibrosis it was worse compared to the previous CAT scan of 2013. There was also some limited enlargement of the sentinel lymph nodes at that also increased in comparison. Largest lymph node is in the pretracheal area measuring 1.3 cm in size. Smaller superior mediastinal lymphadenopathy was seen. The subcarinal lymph node was also enlarged at 1.2 cm. There is also systemic a Lortab that was measured around 3.4 cm in size. Patient also had an influenza screen that came back negative. The white cell count is not elevated at 9.8. Correlation profile is within normal limits. Renal function is also stable. The patient is seen today for very 2017 in follow-up on the regular medical floor. She is currently resting comfortably in bed. She is awake and alert in no acute distress. She has a nonproductive cough. No chills or night sweats. Maintaining good O2 saturations in the 90s on 2 L/m. Nasal cannula. She's been afebrile. Hemodynamically stable. The culture reveals no growth. Sputum cultures pending. White count 22.5. Hemoglobin 12.5. Creatinine 0.97. Maintained on DuoNeb inhalations, antibiotics in the form of ceftriaxone and azithromycin, IV Solu-Medrol. On 04/08/2018 patient seen in follow-up on medical surgical floor. No paranasal been coming in no acute distress, she states still has some exertional dyspnea, and she did desaturate when walking to the bathroom, she will need home oxygen, she didn't qualify, and she desaturated to 85% on room air at rest, and down to 82% with exercise. On sounds reveal coarse crackles in bilateral bases, left greater than the right, no increased chest congestion, no worsening dyspnea, no chest pain. No signs are stable, blood and sputum culture showed no growth. Fever or chills. White blood cell count is trending down, white blood cell count is 17.3, hemoglobin is 12.9, electrolytes and renal profile are stable, B1 is 36, creatinine 0.96. Patient is tolerating oral intake, no acute events overnight, patient is doing well, from pulmonary perspective she can be discharged home today. Objective - Vital Signs Vital signs: Vital Signs Temp 96.9 F L 04/08/18 13:41 Pulse 111 H 04/08/18 13:41 Resp 18 04/08/18 13:41 BP 113/57 04/08/18 13:41 Pulse Ox 93 L 04/08/18 13:41 Intake & Output 04/07/18 04/08/18 04/08/18 18:59 06:59 18:59 Other: # Voids 3 1 2 # Bowel Movements 0 - Exam GENERAL EXAM: Alert, active, comfortable in no apparent distress. HEAD: Normocephalic/atraumatic. EYES: Normal reaction of pupils, equal size. Conjunctiva pink, sclera white. NOSE: Clear with pink turbinates. THROAT: No erythema or exudates. NECK: No masses, no JVD, no thyroid enlargement, no adenopathy. CHEST: No chest wall deformity. Symmetrical expansion. LUNGS: Equal air entry with coarse dry expiratory crackles at bilateral bases, left greater than the right CVS: Regular rate and rhythm, normal S1 and S2, no gallops, no murmurs, no rubs ABDOMEN: Soft, nontender. No hepatosplenomegaly, normal bowel sounds, no guarding or rigidity. EXTREMITIES: No clubbing, no edema, no cyanosis, 2+ pulses and upper and lower extremities. MUSCULOSKELETAL: Muscle strength and tone normal. SPINE: No scoliosis or deformity SKIN: No rashes CENTRAL NERVOUS SYSTEM: Alert and oriented -3. No focal deficits, tone is normal in all 4 extremities. PSYCHIATRIC: Alert and oriented -3. Appropriate affect. Intact judgment and insight. - Labs CBC & Chem 7: 04/08/18 09:41 04/08/18 09:41 Labs: Abnormal Lab Results - Last 24 Hours (Table) 02/04/07/18 04/08/18 Range/Units 17:10 19:59 09:41 WBC 17.3 H (3.8-10.6) k/uL MCHC 30.7 L (31.0-37.0) g/dL Neutrophils # 16.0 H (1.3-7.7) k/uL Lymphocytes # 0.7 L (1.0-4.8) k/uL Chloride (98-107) mmol/L BUN (7-17) mg/dL Glucose (74-99) mg/dL POC Glucose (mg/dL) 127 H 178 H (75-99) mg/dL 04/08/18 04/08/18 Range/Units 09:41 11:46 WBC (3.8-10.6) k/uL MCHC (31.0-37.0) g/dL Neutrophils # (1.3-7.7) k/uL Lymphocytes # (1.0-4.8) k/uL Chloride 108 H (98-107) mmol/L BUN 36 H (7-17) mg/dL Glucose 176 H (74-99) mg/dL POC Glucose (mg/dL) 133 H (75-99) mg/dL Microbiology - Last 24 Hours (Table) 04/05/18 11:55 Blood Culture - Preliminary Blood No Growth after 72 hours 04/07/18 08:25 Gram Stain - Preliminary Sputum Sputum Culture - Preliminary Assessment and Plan Plan: 1 acute exacerbation of COPD/pulmonary fibrosis probably related to an acute bronchitis. Pneumonia is doubtful. The patient has background COPD and pulmonary fibrosis that has gotten worse over the past 6 years. 2 chronic pulmonary fibrosis with gradual progression of the disease over the past 6 years based on CAT scan findings. The pulmonary fibrosis has a subpleural distribution more so in the lower lobes. There are no groundglass changes. 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 3 borderline enlargement of mediastinal lymph nodes, nonspecific, rule out low- grade lymphoma. Sarcoidosis is not a possibility although less likely in this age group. 4 COPD Plan: Patient is improving, no fever or chills, vital signs are stable, no worsening shortness of breath, she does qualify for home oxygen, ulnar perspective she is stable for discharge home today on the oral course of antibiotics, prednisone, nebulized bronchodilators. Follow-up after tinea in the office in 2 weeks I performed a history & physical examination of the patient and discussed their management with my nurse practitioner, Karol Osorio. I reviewed the nurse practitioner's note and agree with the documented findings and plan of care. Lung sounds are positive for coarse dry as respiratory crackles in bilateral bases, left greater than the right. The findings and the impression was discussed with the patient. I attest to the documentation by the nurse practitioner. Time with Patient: Less than 30
--- NOTE | 2018-04-10 10:23 | DS ---
DISCHARGE SUMMARY DATE OF ADMISSION: 04/05/2018 DATE OF DISCHARGE: 04/08/2018 FINAL DIAGNOSES: 1. Acute chronic obstructive pulmonary disease exacerbation. 2. Chronic pulmonary fibrosis. 3. Acute bronchitis. 4. Chronic pulmonary fibrosis with progression. 5. Acute hypoxic respiratory failure from above. HOSPITAL COURSE: This patient presented with shortness of breath, felt to be COPD exacerbation, pulmonary fibrosis exacerbation. Doing better by the time of discharge. Tolerating a diet. The patient did have a chest CTA that showed worsening from previously and some mediastinal lymphadenopathy. The patient is tolerating a diet, requiring oxygen. Care was discussed with the daughter at the bedside. Questions were answered. On examination, temperature 96.9, pulse 111, respiration 18, blood pressure 113/57, pulse ox 85% on room air. LUNGS: Few basal crackles. PSYCH: AO x3. INVESTIGATIONS: BUN 36, creatinine 0.96. CONSULTATION: Dr. Montana from Pulmonary. DISCHARGE MEDICATIONS: 1. Aspirin 81 mg a day. 2. Calcium 600 vitamin D3, 400, one tablet p.o. daily. 3. Zyrtec 10 mg a day. 4. Flonase nasal spray. 5. PreserVision Areds 2 softgel one tablet p.o. b.i.d. 6. Vitamin B complex 1 capsule p.o. daily. 7. Ultram 50 mg q.6. 8. Zithromax 250 mg p.o. daily for 3 tablets. 9. DuoNeb t.i.d. 10.Prednisone taper. 11.Home oxygen 2 L. Follow up with Dr. Ran Mota on 04/10/2018, Dr. Montana in 2 weeks. Home oxygen at all times. Concern Home Care to follow. Discussion and discharge planning more than 35 minutes. MMODL / IJN: [id number] /
== END 2018-04-08 16:09 | disposition home health service (06) | DRG 190 ==
LOC: EC 09:51 → 3SCARD 13:34 → 4MS4W 04-06 22:28
PROVIDERS: ADMIT Hospitalist; ATTEND Hospitalist
DX: J44.0 Chronic obstructive pulmonary disease with (acute) lower respiratory infection (principal); J96.01 Acute respiratory failure with hypoxia; N39.0 Urinary tract infection, site not specified; J84.10 Pulmonary fibrosis, unspecified; J20.9 Acute bronchitis, unspecified; J44.1 Chronic obstructive pulmonary disease with (acute) exacerbation; M54.30 Sciatica, unspecified side; R59.0 Localized enlarged lymph nodes; Z90.710 Acquired absence of both cervix and uterus; Z79.82 Long term (current) use of aspirin; Z79.891 Long term (current) use of opiate analgesic; Z79.899 Other long term (current) drug therapy; Z88.5 Allergy status to narcotic agent
CPT/HCPCS: 36415; 71046; 71275; 80048; 80053; 81001; 83735; 83880; 84484; 85025; 85379; 85610; 85730; 87040; 87070; 87205; 87502; 93005; 94640; 94760; 96374; 96375; 99291